=== PATIENT | male | born 2000 | race Caucasian/White ===

== ENCOUNTER 2023-10-19 20:37 | Emergency (ER) | payer SELFPAY ==
[2023-10-19] MEDS: ONDANSETRON 4MG 2ML VIAL IV ONE (20:45)
[2023-10-19] MEDS: NS 1,000 ML IV ONE (20:45)
[2023-10-19] MEDS: fentaNYL 100 MCG/2 ML INJECTION IV ONE (20:45)
[2023-10-19] MEDS ORDERED: ISOVUE-370 76% 100ML VIAL As Ordered ONE (20:50)
[2023-10-19 21:07] LABS: BASO % 0.3 % (0.0-1.0); EOS # 0.1 10^3/uL (0.0-0.5); EOS % 2.1 % (0.0-3.0); HEMATOCRIT 39.6 % (42.0-52.0); HEMOGLOBIN 14.2 g/dl (13.5-17.5); LYMPH # 1.7 10^3/uL (1.5-5.0); LYMPH % 26.5 % (24.0-44.0); MEAN CORPUSCULAR HEMOGLOBIN 32.3 pg (27.0-33.0); MEAN CORPUSCULAR HGB CONC 35.9 g/dl (32.0-36.5); MONO # 0.3 10^3/uL (0.0-0.8); MONO % 4.5 % (2.0-8.0); NEUTROPHILS # 4.1 10^3/uL (1.5-8.5); PLATELET COUNT, AUTOMATED 165 10^3/uL (150-450); WHITE BLOOD COUNT 6.2 10^3/uL (4.0-10.0)
[2023-10-19 21:13] VITALS: TEMP 97.3
[2023-10-19 21:32] LABS: CK-MB VALUE MASS 84.5 NG/ML (<3.6)
[2023-10-19 21:34] LABS: ALKALINE PHOSPHATASE 61 U/L (46-116); ALT/SGPT 123 U/L (7.0-40); AST/SGOT 183 U/L (<34); BILIRUBIN,TOTAL 2.2 MG/DL (0.3-1.2); BLOOD UREA NITROGEN 13 MG/DL (9-23); CALCIUM LEVEL 9.2 MG/DL (8.5-10.1); CARBON DIOXIDE LEVEL 26 MMOL/L (20-31); CHLORIDE LEVEL 108 MMOL/L (98-107); GLOMERULAR FILTRATION RATE > 60.0 (>60); GLUCOSE, FASTING 103 MG/DL (60-100); POTASSIUM SERUM 3.6 MMOL/L (3.5-5.1); SODIUM LEVEL 140 MMOL/L (136-145); TOTAL PROTEIN 6.2 G/DL (5.7-8.2)
[2023-10-19 21:38] LABS: CPK CREATINE PHOSPHOKINASE 737 U/L (46-171); MB/CK RELATIVE INDEX 11.46 (< OR =4)
[2023-10-19 22:55] LABS: CK-MB VALUE MASS 108.7 NG/ML (<3.6)
[2023-10-19 22:56] LABS: MB/CK RELATIVE INDEX 12.55 (< OR =4)
[2023-10-19] MEDS ORDERED: HOME MED LIST COMPLETE! XX SCH (23:20)
[2023-10-20 03:15] VITALS: BP 101/55; O2SAT 99
== END 2023-10-20 03:30 | disposition left against medical advice (07) ==
LOC: EDBD 20:37 → M ED 20:37
DX: S32.018A Other fracture of first lumbar vertebra, initial encounter for closed fracture (principal); S27.322A Contusion of lung, bilateral, initial encounter; S26.91XA Contusion of heart, unspecified with or without hemopericardium, initial encounter; J93.83 Other pneumothorax; W55.12XA Struck by horse, initial encounter; I36.1 Nonrheumatic tricuspid (valve) insufficiency; I37.1 Nonrheumatic pulmonary valve insufficiency; I45.10 Unspecified right bundle-branch block; Y92.009 Unspecified place in unspecified non-institutional (private) residence as the place of occurrence of the external cause; Y93.89 Activity, other specified; Y99.9 Unspecified external cause status; Z53.9 Procedure and treatment not carried out, unspecified reason
CPT/HCPCS: 36415; 70450; 71045; 71260; 72125; 74177; 80047; 80053; 82550; 82553; 83735; 84484; 85025; 93005; 93306; 99291; G0390; Q9967

== ENCOUNTER 2024-10-01 08:15 | Emergency (ER) | payer OTHER, SELFPAY ==
[2024-10-01] MEDS: ONDANSETRON 4MG 2ML VIAL IV ONE (08:33)
[2024-10-01] MEDS ORDERED: ISOVUE-370 76% 100 ML VIAL As Ordered ONE (08:34)
[2024-10-01 08:40] LABS: VENOUS BASE EXCESS -3.7 (-2.0-2.0); VENOUS HCO3 24.6 MMOL/L (23.0-27.0); VENOUS O2 SATURATION 66.2 % (60.0-80.0); VENOUS PARTIAL PRESSURE CO2 57.4 mmHg (38.0-50.0); VENOUS PARTIAL PRESSURE O2 38.1 mmHg (30.0-50.0); VENOUS PH 7.250 UNITS (7.330-7.430); VENOUS STANDARD HCO3 20.7 MMOL/L; VENOUS TOTAL CO2 26.4 MMOL/L (24.0-28.0)
[2024-10-01] MEDS: NS 500 ML IV ONE (08:55)
[2024-10-01 08:57] LABS: BASO # 0.0 10^3/uL (0.0-0.2); BASO % 0.2 % (0.0-1.0); EOS # 0.0 10^3/uL (0.0-0.5); EOS % 0.4 % (0.0-3.0); LYMPH # 2.1 10^3/uL (1.5-5.0); LYMPH % 23.6 % (24.0-44.0); MONO # 0.4 10^3/uL (0.0-0.8); MONO % 4.4 % (2.0-8.0); NEUTROPHILS # 6.4 10^3/uL (1.5-8.5); NEUTROPHILS % 70.7 % (36.0-66.0); PLATELET COUNT, AUTOMATED 181 10^3/uL (150-450)
[2024-10-01 09:13] LABS: APPEARANCE, URINE CLEAR (CLEAR); BACTERIA, URINE AUTO NEGATIVE (NEGATIVE); BILIRUBIN, URINE AUTO NEGATIVE (NEGATIVE); BLOOD, URINE BLOOD NEGATIVE (NEGATIVE); GLUCOSE, URINE (UA) AUTO 1+ mg/dL (NEGATIVE); KETONE, URINE AUTO NEGATIVE (NEGATIVE); LEUKOCYTE ESTERASE, URINE AUTO NEGATIVE (NEGATIVE); NITRITE, URINE AUTO NEGATIVE (NEGATIVE); PROTEIN, URINE AUTO NEGATIVE (NEGATIVE); RBC, URINE AUTO 1 /HPF (0-3); SPECIFIC GRAVITY URINE AUTO 1.015 (1.002-1.035); SQUAMOUS EPITHELIAL CELL UR AU 0 /HPF (0-6); UROBILINOGEN, URINE AUTO 0.2 mg/dL (0.0-2.0); WBC, URINE AUTO 0 /HPF (0-3)
[2024-10-01] MEDS: BOOSTRIX VACCINE (TETANUS/DIPHTH/ACEL. PERTUSSIS) 0.5 ML SYR IM ONE (09:16)
[2024-10-01 09:20] LABS: ALT/SGPT 30 U/L (7.0-40); AST/SGOT 37 U/L (<34); CALCIUM LEVEL 8.7 MG/DL (8.5-10.1); CARBON DIOXIDE LEVEL 27 MMOL/L (20-31); CHLORIDE LEVEL 103 MMOL/L (98-107); CK-MB VALUE MASS 7.7 NG/ML (<3.6); CREATININE FOR GFR 0.75 MG/DL (0.70-1.30); GLOMERULAR FILTRATION RATE > 90.0 (>60); POTASSIUM SERUM 3.2 MMOL/L (3.5-5.1); SODIUM LEVEL 143 MMOL/L (136-145)
[2024-10-01 09:28] LABS: INR 1.01
[2024-10-01 09:29] LABS: CPK CREATINE PHOSPHOKINASE 304 U/L (46-171); MB/CK RELATIVE INDEX 2.53 (< OR =4)
[2024-10-01] MEDS: NS (Normal Saline) 0.9% 1,000 ML IV ONE (09:43)
[2024-10-01] MEDS: ceFAZolin SOD 1 GM in DEXTROSE 5% (D5W) ADV/MINI-BAG 50 ML IV ONE (09:43)
[2024-10-01] MEDS: BOOSTRIX VACCINE (TETANUS/DIPHTH/ACEL. PERTUSSIS) 0.5 ML SYR IM.IMMUN ONE (09:51)
[2024-10-01] MEDS: TETANUS IMMUNE GLOBULIN (HUMAN) 250 UNITS/ML SYRINGE IM.IMMUN ONE (09:55)
[2024-10-01 09:58] VITALS: BP 115/71; TEMP 97.3; O2SAT 99
[2024-10-01 10:01] LABS: ABG BASE EXCESS -3.4 (-2.0-2.0); ABG HCO3 22.0 MMOL/L (22.0-26.0); ABG O2 SATURATION 98.3 % (95.0-99.0); ABG PARTIAL PRESSURE CO2 40.9 mmHg (35.0-45.0); ABG PARTIAL PRESSURE O2 120.2 mmHg (75.0-100.0); ABG STANDARD HCO3 21.7 MMOL/L. (22.0-26.0); ABG TOTAL CO2 23.2 MMOL/L (22.0-29.0); ABG pH (ARTERIAL) 7.348 UNITS (7.350-7.450)
== END 2024-10-01 09:58 | disposition short-term general hospital (02) ==
LOC: M ED 08:15
DX: S06.0X0A Concussion without loss of consciousness, initial encounter (principal); S02.842A Fracture of lateral orbital wall, left side, initial encounter for closed fracture; S02.32XA Fracture of orbital floor, left side, initial encounter for closed fracture; S02.40FA Zygomatic fracture, left side, initial encounter for closed fracture; S02.40DA Maxillary fracture, left side, initial encounter for closed fracture; S82.221A Displaced transverse fracture of shaft of right tibia, initial encounter for closed fracture; S82.431A Displaced oblique fracture of shaft of right fibula, initial encounter for closed fracture; R00.0 Tachycardia, unspecified; I45.10 Unspecified right bundle-branch block; Y92.9 Unspecified place or not applicable; Y93.9 Activity, unspecified; Y99.9 Unspecified external cause status; V80.42XA Occupant of animal-drawn vehicle injured in collision with car, pick-up truck, van, heavy transport vehicle or bus, initial encounter; Z23 Encounter for immunization
CPT/HCPCS: 36600; 51702; 70450; 70486; 71045; 71260; 72125; 72128; 72131; 72170; 73590; 73610; 74177; 80047; 80048; 80076; 81001; 82150; 82550; 82553; 82803; 83605; 83690; 84484; 85025; 85610; 85730; 86850; 86900; 86901; 90471; 90472; 90715; 93005; 93041; 94760; 96374; 96375; 99291; J0690; J1670; J2405; J3010; Q9967